=== PATIENT | female | born 1955 | race Caucasian/White ===

== ENCOUNTER → 2016-05-13 | Emergency (ER) | payer OTHER ==
[~2016-05-13] MED LIST: AMLO5TAB4 PO; AMOX500C2 PO; ASPI-605 PO; ATOR10TA PO; BENA40TA67 PO; CLON0.5T PO; ESCI5TAB PO
--- NOTE | 2016-05-13 10:53 | NUR ---
PT CALLED IN FOR TRIAGE, BUT SHE CHANGED HER MIND, REQUESTED TO STEP OUT TO MAKE A PHONECALL.
== END | disposition home or self-care (01) ==
LOC: ER 10:44
DX: M79.604 Pain in right leg (principal); Z53.21 Procedure and treatment not carried out due to patient leaving prior to being seen by health care provider

== ENCOUNTER 2017-01-19 21:13 | Emergency (ER) | payer OTHER ==
[~2017-01-19] VITALS: Ht 172.7 cm; Wt 90.7 kg
--- NOTE | 2017-01-19 23:07 | NUR ---
Patient discharged to home in stable conditon. Written and verbal after care instructions given. Patient verbalizes understanding of instructions.
== END 2017-01-19 23:08 | disposition home or self-care (01) ==
LOC: ER 21:14
DX: J20.9 Acute bronchitis, unspecified (principal); M54.9 Dorsalgia, unspecified; I10 Essential (primary) hypertension; E03.9 Hypothyroidism, unspecified; K21.9 Gastro-esophageal reflux disease without esophagitis; M19.90 Unspecified osteoarthritis, unspecified site; Z79.82 Long term (current) use of aspirin; N83.209 Unspecified ovarian cyst, unspecified side
CPT/HCPCS: 71010; A4663

== ENCOUNTER 2018-08-19 16:21 | Emergency (ER) | payer OTHER ==
[~2018-08-19] VITALS: Ht 172.7 cm; Wt 98.9 kg
[2018-08-19] MEDS ORDERED: KETOROLAC TROMETHAMINE 15 MG INJ IV ONE (16:45)
[2018-08-19] MEDS ORDERED: IV NORMAL SALINE 1000 ML BAG IV ONE (16:45)
[2018-08-19] MEDS ORDERED: KETOROLAC TROMETHAMINE 60 MG INJ IM ONE (17:00)
[2018-08-19 17:13] LABS: BASOPHILS # (AUTO) 0.1 K/uL (0.0-8.0); BASOPHILS % (AUTO) 1.2 % (0.0-2.0); CREATININE 1.4 mg/dL (0.6-1.3); EOSINOPHILS # (AUTO) 0.1 K/uL (0.0-0.7); HEMOGLOBIN 12.6 g/dL (10.9-14.3); LYMPHOCYTES # (AUTO) 1.5 K/uL (20.0-40.0); LYMPHOCYTES % (AUTO) 24.9 % (20.5-51.5); MEAN CORPUSCULAR HEMOGLOBIN 28.9 uug (24.7-32.8); MEAN CORPUSCULAR HGB CONC 33 g/dL (32.3-35.6); MEAN CORPUSCULAR VOLUME 87.2 fL (75.5-95.3); MONOCYTES # (AUTO) 0.4 K/uL (2.0-10.0); MONOCYTES % (AUTO) 6.9 % (0.0-11.0); NEUTROPHILS # (AUTO) 3.8 K/uL (1.8-8.9); PLATELET COUNT (AUTO) 227 K/uL (179-408); POTASSIUM 4.6 mmol/L (3.5-5.1); RED BLOOD CELL COUNT(AUTO) 4.36 MIL/uL (3.63-4.92); WHITE BLOOD COUNT (AUTO) 5.9 K/uL (3.8-11.8)
[2018-08-19 17:15] LABS: *BILIRUBIN,URIN NEGATIVE (NEGATIVE); *COLOR,URINE LIGHT YELLOW (YELLOW); *KETONES,URINE NEGATIVE (NEGATIVE); *UROBILINOGEN,URINE 0.2 E.U./dl (NORMAL); LEUKOCYTE ESTERASE ,URINE 1+ (NEGATIVE); NITRITE, URINE NEGATIVE (NEGATIVE); UGLUCOSE NEGATIVE (NEGATIVE)
--- NOTE | 2018-08-19 17:15 | NUR ---
PT IS IN BED #2A. DR HODGE EVALUATED THE PT.
[2018-08-19 17:19] LABS: *BLOOD, URINE TRACE (NEGATIVE); *CLARITY,URINE HAZY (CLEAR)
[2018-08-19 17:26] LABS: BACTERIA,URINE FEW /HPF (NONE SEEN); RBC,URINE 0-3 /HPF (0-3); SQUAMOUS EPITHELIAL CELL,UR MODERATE /HPF (NONE SEEN)
--- NOTE | 2018-08-19 18:01 | NUR ---
PT WAS D/C'd TO HOME. D/C INSTRUCTIONS GIVEN TO THE PT.
[2018-08-19 18:02] VITALS: BP 145/84
== END 2018-08-19 18:02 | disposition home or self-care (01) ==
LOC: ER 16:21
DX: N20.1 Calculus of ureter (principal); N28.9 Disorder of kidney and ureter, unspecified; I10 Essential (primary) hypertension; K21.9 Gastro-esophageal reflux disease without esophagitis; F41.9 Anxiety disorder, unspecified; E03.9 Hypothyroidism, unspecified; Z79.899 Other long term (current) drug therapy; Z79.82 Long term (current) use of aspirin; Z79.2 Long term (current) use of antibiotics
CPT/HCPCS: 36415; 76770; 80048; 81000; 81001; 85025; 87086; 96374; 99284; J1885; A4663; J7030

== ENCOUNTER 2018-10-28 21:41 | Emergency (ER) | payer OTHER ==
[~2018-10-28] VITALS: Ht 172.7 cm; Wt 99.8 kg
--- NOTE | 2018-10-28 22:15 | NUR ---
PATIENT WAS MSE BY DR DONIS IN ROOM 05A.
[2018-10-28] MEDS ORDERED: HYDROCODONE/APAP 10-325 MG TABLET PO ONE (22:30)
[2018-10-28] MEDS ORDERED: ONDANSETRON ODT 4 MG TAB.RAPDIS SL ONE (22:30)
[2018-10-28] MEDS ORDERED: ONDANSETRON ODT 4 MG TAB.RAPDIS ONE (22:35)
[2018-10-28] MEDS ORDERED: HYDROCODONE/APAP 10-325 MG TABLET ONE (22:35)
--- NOTE | 2018-10-28 23:01 | NUR ---
PATIENT REFUSED X-RAYS AND CT DR DONIS MADE AWARE.
--- NOTE | 2018-10-29 00:53 | NUR ---
Patient eloped from facility. ER physician notified.
== END 2018-10-29 00:53 | disposition left against medical advice (07) ==
LOC: ER 21:43
DX: M54.2 Cervicalgia (principal); M25.512 Pain in left shoulder; M25.522 Pain in left elbow; M25.562 Pain in left knee; M54.9 Dorsalgia, unspecified; F32.9 Major depressive disorder, single episode, unspecified; F41.9 Anxiety disorder, unspecified; I10 Essential (primary) hypertension; E78.5 Hyperlipidemia, unspecified; K21.9 Gastro-esophageal reflux disease without esophagitis; E03.9 Hypothyroidism, unspecified; Z79.899 Other long term (current) drug therapy; Z79.82 Long term (current) use of aspirin; Z79.2 Long term (current) use of antibiotics; V03.99XA Pedestrian with other conveyance injured in collision with car, pick-up truck or van, unspecified whether traffic or nontraffic accident, initial encounter; Y93.89 Activity, other specified; Y92.89 Other specified places as the place of occurrence of the external cause; Y99.8 Other external cause status
CPT/HCPCS: 72100; A4663; Q0162

== ENCOUNTER 2019-09-27 18:33 | Emergency (ER) | payer OTHER ==
[~2019-09-27] VITALS: Ht 172.7 cm; Wt 99.8 kg
--- NOTE | 2019-09-27 18:35 | NUR ---
pt refuses EKG at this time.
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
[2019-09-27] MEDS ORDERED: KETOROLAC TROMETHAMINE 60 MG INJ IM ONE (19:00)
[2019-09-27] MEDS ORDERED: ACETAMINOPHEN ES 500 MG TABLET PO ONE (19:00)
[2019-09-27] MEDS ORDERED: KETOROLAC TROMETHAMINE 30 MG INJ ONE ×2 (19:01→19:04)
[2019-09-27] MEDS ORDERED: ACETAMINOPHEN ES 500 MG TABLET ONE (19:01)
[2019-09-27 19:15] LABS: BASOPHILS # (AUTO) 0.1 K/uL (0.0-8.0); BASOPHILS % (AUTO) 0.7 % (0.0-2.0); EOSINOPHILS % (AUTO) 0.2 % (0.0-7.0); HEMATOCRIT 41.1 % (31.2-41.9); HEMOGLOBIN 13.3 g/dL (10.9-14.3); LYMPHOCYTES # (AUTO) 1.5 K/uL (20.0-40.0); LYMPHOCYTES % (AUTO) 19.2 % (20.5-51.5); MEAN CORPUSCULAR HEMOGLOBIN 28.3 uug (24.7-32.8); MEAN CORPUSCULAR HGB CONC 32 g/dL (32.3-35.6); MEAN CORPUSCULAR VOLUME 87.5 fL (75.5-95.3); MONOCYTES # (AUTO) 0.3 K/uL (2.0-10.0); MONOCYTES % (AUTO) 4.1 % (0.0-11.0); NEUTROPHILS % (AUTO) 75.8 % (38.5-71.5); PLATELET COUNT (AUTO) 245 K/uL (179-408); RED BLOOD CELL COUNT(AUTO) 4.69 MIL/uL (3.63-4.92)
--- NOTE | 2019-09-27 19:22 | NUR ---
Xray at bedside
[2019-09-27 19:27] LABS: CREATININE 1.2 mg/dL (0.6-1.3); POTASSIUM 3.8 mmol/L (3.5-5.1)
[2019-09-27 19:33] LABS: BILIRUBIN,TOTAL 0.3 mg/dL (0.2-1.0); TOTAL PROTEIN, SERUM 7.7 g/dL (6.4-8.2)
--- NOTE | 2019-09-27 20:09 | NUR ---
[employer] at bedside
--- NOTE | 2019-09-27 21:01 | NUR ---
Patient does not wish to proceed with medical care recommended by Dr. Jones. Patient given information related to possible complications, up to and including , which could occur as a result of leaving the hospital at this time. Patient verbalizes understanding of risks involved due to leaving against medical advice. Patient has signed AMA form. aa/ox4. able to speak in complete sentences ambulatory with steady gait no s/s of distress in stable condition all belongings with pt
[2019-09-27 21:04] VITALS: BP 140/101
== END 2019-09-27 21:10 | disposition left against medical advice (07) ==
LOC: ER 18:33
DX: M54.5 Low back pain (principal); R51 Headache; M54.2 Cervicalgia; R06.02 Shortness of breath; M25.562 Pain in left knee; M25.561 Pain in right knee; I10 Essential (primary) hypertension; F41.9 Anxiety disorder, unspecified; E03.9 Hypothyroidism, unspecified; Z79.82 Long term (current) use of aspirin; Z79.899 Other long term (current) drug therapy; Y04.8XXA Assault by other bodily force, initial encounter; Y92.89 Other specified places as the place of occurrence of the external cause
CPT/HCPCS: 36415; 71045; 72110; 80053; 85025; 96372; 99284; J1885 ×2; A4663; A9150

== ENCOUNTER 2020-11-29 19:51 | Inpatient (IN) | payer OTHER ==
[~2020-11-29] VITALS: Ht 172.7 cm; Wt 117.9 kg
[2020-11-29] MEDS ORDERED: ASPIRIN 81 MG TAB.CHEW PO ONE (20:15)
[2020-11-29] MEDS ORDERED: NITROGLYCERIN OINT 1 GM PACKET TP ONE ×2 (20:15→21:16)
[2020-11-29 20:31] LABS: HEMATOCRIT 37.8 % (31.2-41.9); MEAN CORPUSCULAR HEMOGLOBIN 29.2 uug (24.7-32.8); MEAN CORPUSCULAR VOLUME 88.6 fL (75.5-95.3); PLATELET COUNT (AUTO) 236 K/uL (179-408)
[2020-11-29 20:35] LABS: POTASSIUM 3.8 mmol/L (3.5-5.1)
[2020-11-29] MEDS ORDERED: DICL75TA5 PO (20:36)
[2020-11-29] MEDS ORDERED: NITR0.4T SL (20:36)
[2020-11-29] MEDS ORDERED: ATEN25TA PO (20:36)
[2020-11-29] MEDS ORDERED: IBUP-1953 PO (20:36)
[2020-11-29] MEDS ORDERED: TRAZ-182 PO (20:36)
[2020-11-29] MEDS ORDERED: BUSP10TA3 PO (20:36)
[2020-11-29] MEDS ORDERED: AMLO10TA59 PO (20:36)
[2020-11-29] MEDS ORDERED: FAMO40TA71 PO (20:36)
[2020-11-29 20:48] LABS: BILIRUBIN,DIRECT 0.1 mg/dL (0.0-0.2); BILIRUBIN,TOTAL 0.2 mg/dL (0.2-1.0); TOTAL PROTEIN, SERUM 7.5 g/dL (6.4-8.2)
[2020-11-29] MEDS ORDERED: ASPIRIN 81 MG TAB.CHEW ONE (21:16)
--- NOTE | 2020-11-29 22:28 | NUR ---
DR LANDON SPOKE WITH DR DENNIS FOR CARDIOLOGY CONSULT. PAGED EPIC PANEL FOR INPATIENT ADMISSION. WAITING FOR DR URRUTIA TO CALL BACK.
[2020-11-29] MEDS ORDERED: ENOXAPARIN SODIUM 80 MG/0.8 ML DISP.SYRIN SQ ONE (22:30)
[2020-11-29] MEDS ORDERED: FUROSEMIDE 20 MG/2 ML VIAL IV ONE (22:30)
[2020-11-29] MEDS ORDERED: FUROSEMIDE 20 MG/2 ML VIAL ONE (22:38)
[2020-11-29] MEDS ORDERED: ENOXAPARIN SODIUM 100 MG/ML DISP.SYRIN SQ ONE (22:39)
--- NOTE | 2020-11-29 22:59 | NUR ---
Dr. Cardenas on panel call with Dr. Ruiz. Patient accepted for admission to [facility], Dx [facility].
[2020-11-30] VITALS (20 sets, daily range): BP systolic 78–143; BP diastolic 36–93
--- NOTE | 2020-11-30 00:10 | NUR ---
Oscar RN called back from CCU and accepted report on pt. Thorough report given using SBAR method.
--- NOTE | 2020-11-30 00:12 | NUR ---
CCU called to give report and try to transport pt. CCU nurse said he will call back in 5 min.
--- NOTE | 2020-11-30 00:18 | NUR ---
Pt transported to CCU 4 via gurney without incident. Pt has good color, temp and appearance. VSS, PE wnl. 127/69, 99% RA, 73 bpm NSR without ectopy. Denies any pain, nausea and discomfort. No s/sx of distress present.
[2020-11-30] MEDS ORDERED: hydrALAZINE HCL 20 MG/1 ML VIAL IV PRN (00:30)
[2020-11-30] MEDS ORDERED: ONDANSETRON 4 MG/2 ML VIAL IV PRN (00:30)
[2020-11-30] MEDS ORDERED: MORPHINE SULFATE 2 MG/1 ML DISP.SYRIN IV PRN (00:30)
--- NOTE | 2020-11-30 00:50 | NUR ---
Received Patient from ER via Wheelchair. patient is A/O x4 calm, but not too happy to be admitted. Patient connected to the monitor showing sinus rhythm with inverted T waves, no ST elevation. BP stable. Patient complaining of headache, most likely side effect of the nitro gel administered in the ER. Patient arrived on room air, SAT 94% though patient has nail khmer on. No complaints of SOB at this time. left hand 22g peripheral IV. No drips on arrival. No heparin drip ordered, patient ordered for Lovenox 1mg/kg q12h. All other systems appear within normal limits. No other complaints or concerns from the patient at this time. Will continue to monitor.
--- NOTE | 2020-11-30 02:00 | NUR ---
Patient complaining of SOB, placed on 2L NC, responding well SAT 95%
[2020-11-30] MEDS: ZOLPIDEM 5 MG TABLET PO PRN ×2 (02:12→22:14)
[2020-11-30 05:18] LABS: HEMATOCRIT 35.2 % (31.2-41.9); MEAN CORPUSCULAR HEMOGLOBIN 29.3 uug (24.7-32.8); MEAN CORPUSCULAR VOLUME 88.6 fL (75.5-95.3); PLATELET COUNT (AUTO) 233 K/uL (179-408)
[2020-11-30 05:31] LABS: BILIRUBIN,TOTAL 0.2 mg/dL (0.2-1.0); MAGNESIUM 2.1 mg/dL (1.8-2.4); PHOSPHOROUS 4.2 mg/dL (2.5-4.9); POTASSIUM 3.8 mmol/L (3.5-5.1); TOTAL PROTEIN, SERUM 6.9 g/dL (6.4-8.2)
[2020-11-30 05:43] LABS: THYROID STIMULATING HORMONE 4.989 mIU/mL (0.358-3.740)
--- NOTE | 2020-11-30 07:30 | NUR ---
Received report from night club manager nurse, patient in bed awake, no distress noted at this time, Room air saturation 98%. Sinus rhythm with inverted T-waves. Hemodynamically stable, and afebrile.
[2020-11-30] MEDS: FUROSEMIDE 20 MG/2 ML VIAL IV SCH (08:50)
[2020-11-30] MEDS: ATORVASTATIN 40 MG TABLET PO SCH (08:50)
[2020-11-30] MEDS: PANTOPRAZOLE SODIUM 40 MG TABLET.DR PO SCH (08:50)
[2020-11-30] MEDS: METOPROLOL TARTRATE 25 MG TABLET PO SCH ×2 (08:54→21:06)
[2020-11-30] MEDS: ASPIRIN EC 325 MG TABLET.DR PO SCH ×2 (08:55→09:42)
[2020-11-30] MEDS ORDERED: ENOXAPARIN SODIUM 100 MG/ML DISP.SYRIN SQ SCH (09:00)
[2020-11-30] MEDS ORDERED: BENAZEPRIL HCL 20 MG TABLET PO SCH (09:00)
[2020-11-30] MEDS ORDERED: AMLODIPINE 10 MG TABLET PO SCH (09:00)
[2020-11-30] MEDS: busPIRone 10 MG TABLET PO SCH ×2 (09:42→17:11)
--- NOTE | 2020-11-30 11:00 | NUR ---
Patient preparation for cardiac catheterization, midline inserted by JESSICA Ferro.
[2020-11-30] MEDS: ACETAMINOPHEN 325 MG TABLET PO PRN ×3 (13:41→22:13)
[2020-11-30] MEDS: ENOXAPARIN SODIUM 100 MG/ML DISP.SYRIN SQ SCH (17:12)
--- NOTE | 2020-11-30 19:45 | NUR ---
ROUNDS MADE PATIENT IN BED AAOX4/MAE4. NO RESPIRATORY DISTRESS NOTED ON ROOM AIR . SATURATION 97 RR 18.DENIES CHEST PAIN . ENDORSED BY DAY SHIFT RN SHE [facility] AND MUNITIONS WORKER WILL ARRANGE HER TRANSFER IN AM .
--- NOTE | 2020-11-30 21:00 | NUR ---
PATIENT DAUGHTER CALLED AND ASKED IF SHE IS GOING TO BE TRANSFERRED TUCKER INFORMED HER IT WILL BE TOMORROW [employer] SUPERVISOR WILL ARRANGE THE TRANSFER.
--- NOTE | 2020-11-30 21:27 | NUR ---
PATIENT CALLED AND ASKED FOR SOMETHING TO EAT , GIVEN APPLE JUICE ,ORANGE JUICE AND SALTINE CRACKERS .PATIENT ABLE TO FEED SELF .
--- NOTE | 2020-11-30 22:14 | NUR ---
patient requested for pain medication she said her right back side is hurting her /painful and also she wants sleeping medication she said she didn't sleep yesterday .
--- NOTE | 2020-11-30 22:48 | NUR ---
assisted to the bedside commode patient voided . changed soiled linens and gown and connected back to monitor . call light placed with in reach advised patient to call for help and not to get oob by herself .
--- NOTE | 2020-12-01 01:52 | NUR ---
patient in bed sleeping no respiratory distress noted on room air ,saturation 93 % rr 22 on and off noted patient snoring .continue to monitor v/s .sleeping comfortably.SR 69 on the heart monitor .
[2020-12-01 02:23] VITALS: BP 124/78
[2020-12-01 03:44] VITALS: BP 100/64
--- NOTE | 2020-12-01 03:46 | NUR ---
patient trying to get oob . reoriented and educated to call for assistance and that he has a guerrero and he can just pee . bed alarm ON. Addendum: 12/01/20 at 0347 by ERON DENNIS RN WRONG PATIENT
--- NOTE | 2020-12-01 03:47 | NUR ---
PATIENT CALLED AND ASKED FOR WATER GIVEN TOLERATED WATER AND PATIENT WENT BACK TO SLEEP.
[2020-12-01] MEDS: PANTOPRAZOLE SODIUM 40 MG TABLET.DR PO SCH (06:18)
--- NOTE | 2020-12-01 06:30 | NUR ---
given Tylenol c/o pain back as per patient she has a very bad arthritis , and the bed is not comfortable . hot packs applied to back area .
[2020-12-01] MEDS: ACETAMINOPHEN 325 MG TABLET PO PRN (06:53)
[2020-12-01 08:00] VITALS: BP 133/62
[2020-12-01 08:01] VITALS: BP 133/62
[2020-12-01] MEDS: METOPROLOL TARTRATE 25 MG TABLET PO SCH (08:01)
[2020-12-01] MEDS: ASPIRIN EC 325 MG TABLET.DR PO SCH (08:01)
[2020-12-01] MEDS: FUROSEMIDE 20 MG/2 ML VIAL IV SCH (08:01)
[2020-12-01] MEDS: busPIRone 10 MG TABLET PO SCH (08:01)
[2020-12-01] MEDS: ATORVASTATIN 40 MG TABLET PO SCH (08:01)
[2020-12-01] MEDS: ENOXAPARIN SODIUM 100 MG/ML DISP.SYRIN SQ SCH (08:02)
[2020-12-01 09:01] LABS: HEMATOCRIT 39.1 % (31.2-41.9); MEAN CORPUSCULAR HEMOGLOBIN 29.5 uug (24.7-32.8); MEAN CORPUSCULAR VOLUME 88.1 fL (75.5-95.3); PLATELET COUNT (AUTO) 252 K/uL (179-408)
[2020-12-01 09:07] LABS: CREATININE 0.9 mg/dL (0.6-1.3); POTASSIUM 3.7 mmol/L (3.5-5.1)
--- NOTE | 2020-12-01 10:32 | NUR ---
patient states she wants to leave against medical advice. I informed her to wait to see the doctor and that it was not safe to leave at this time. informed Shahriar Ferro and he is on his way to the hospital and he wants to talk to the patient. I informed her to wait for the doctor before she makes the decision to leave and she says that she does not want to wait for him and that she wants to go to [facility] instead. she doesnt feel safe going to [place] or any hospital in the [place]. she states "she feels good now" and that she rather go to [facility]. she also stated regardless of what the doctor says she is still going to leave and asked to take off the IVs. printed AMA and will remove IVs.
--- NOTE | 2020-12-01 10:56 | NUR ---
Dr. Noriega came in to see patient but patient continues to sign AMA.
--- NOTE | 2020-12-01 11:00 | NUR ---
patient is walking out and [employer] in the unit and discussed and informed her the risks of her leaving and she continues to walk out saying "she feels fine right now" if she doesnt feel good she will decide to go to [place] or [facility].
== END 2020-12-01 11:47 | disposition left against medical advice (07) | DRG 190 ==
LOC: ER 19:54 → CCU 23:00
PROVIDERS: ADMIT Nurse Practitioner Family; ATTEND Nurse Practitioner Family
PROC: B546ZZA Ultrasonography of Right Subclavian Vein, Guidance (ICD-10-PCS; principal; 2020-11-30)
PROC: 05H533Z Insertion of Infusion Device into Right Subclavian Vein, Percutaneous Approach (ICD-10-PCS; principal; 2020-11-30)
DX: I21.4 Non-ST elevation (NSTEMI) myocardial infarction (principal); I50.21 Acute systolic (congestive) heart failure; I11.0 Hypertensive heart disease with heart failure; E03.9 Hypothyroidism, unspecified; E66.9 Obesity, unspecified; E78.5 Hyperlipidemia, unspecified; F41.9 Anxiety disorder, unspecified; K21.9 Gastro-esophageal reflux disease without esophagitis; M19.90 Unspecified osteoarthritis, unspecified site; Z87.442 Personal history of urinary calculi; Z20.822 Contact with and (suspected) exposure to COVID-19; Z68.39 Body mass index [BMI] 39.0-39.9, adult
CPT/HCPCS: 36415; 70030-TC; 71045; 83735; 84100; 84443; 85025; 85730; 93005; 93307; A4663; G0378; J1650; J1940; J2270